=== PATIENT | male | born 1940 | race Caucasian/White ===

== ENCOUNTER → 2016-04-05 | Outpatient (CLI) | payer MEDICARE, MEDICAID ==
[~2016-04-05] MED LIST: AMLO10TA2 PO; BRIM5DRO OP; LATA2.5D5 OP; LISI40TA PO; METF1000 PO; METO-351 PO
--- OUTSIDE RECORDS SUMMARY | 2016-04-05 11:41 | XMS REPORT ---
Author Author Tomasa Albert Organization [facility] Address [address] [place], [place] [id number] Care Team Providers Care Commercial Lines Insurance Agent Name Role Phone Tomasa Albert PCP Unavailable [place] Unavailable Unavailable [place] Unavailable Unavailable [place] Unavailable Unavailable Allergies and Adverse Reactions Name Reaction Notes NO KNOWN DRUG ALLERGIES Plan of Treatment Planned Activity Comments Planned Date Planned Time Plan/Goal ELECTROCARDIOGRAM TRACING 09/01/2015 12:00 AM COMPLETE CBC W/AUTO DIFF WBC 10/19/2015 12:00 AM COMPREHEN METABOLIC PANEL 10/19/2015 12:00 AM LIPID PANEL 10/19/2015 12:00 AM GLYCOSYLATED HEMOGLOBIN TEST 10/19/2015 12:00 AM ASSAY THYROID STIM HORMONE 10/19/2015 12:00 AM Medications Active Name Start Date Estimated Completion Date SIG Comments amlodipine 10 mg oral tablet take 1 tablet (10 mg) by oral route once daily testosterone cypionate 200 mg/mL intramuscular oil inject 1 milliliter by intramuscular route every 4 weeks lisinopril 40 mg oral tablet take 1 tablet (40 mg) by oral route once daily Combigan 0.2-0.5 % ophthalmic drops latanoprost 0.005 % ophthalmic drops OneTouch Verio Flex miscellaneous misc 07/29/2015 01/25/2016 Test strips and lancets for once daily testing, Dx: DM II metformin 500 mg oral tablet extended release 24 hr 09/01/2015 02/28/2016 take 2 tablets (1,000 mg) by oral route 2 times per day for 30 days Stiolto Respimat 2.5-2.5 mcg/actuation inhalation mist 09/26/2015 12/25/2015 inhale 2 puffs by inhalation route once daily at the same time each day for 30 days B12 5,000-100 mcg sublingual lozenge Cialis 5 mg oral tablet 10/19/2015 01/17/2016 take 1 tablet (5 mg) by oral route once daily for 30 days cyclobenzaprine 10 mg oral tablet 10/19/2015 take 0.5-1 tablet by oral route once a day (at bedtime) as needed diclofenac sodium 75 mg oral tablet,delayed release (DR/EC) 10/19/20152015 take 1 tablet (75 mg) by oral route 2 times per day for 30 days Discontinued Name Start Date Discontinued Date SIG Comments famotidine 20 mg oral tablet 10/19/2015 take 1 tablet (20 mg) by oral route 2 times per day Invokana 300 mg oral tablet 09/01/2015 10/19/2015 take 1 tablet (300 mg) by oral route once daily before the first meal of the day for 30 days Invokana 300 mg oral tablet 09/01/2015 10/19/2015 take 1 tablet (300 mg) by oral route once daily before the first meal of the day for 30 days Per Pt due to law firms rosuvastatin 20 mg oral tablet 09/01/2015 10/19/2015 take 1 tablet (20 mg) by oral route once daily at bedtime for 30 days Problem List Not available. Vital Signs Date Time BP-Sys(mm[Hg] BP-[place](mm[Hg]) HR(bpm) RR(rpm) Temp WT HT HC BMI BSA BMI Percentile O2 Sat(%) 10/19/2015 11:31:00 AM 142 mmHg 78 mmHg 74 bpm 17 rpm 97.4 F 204.6 lbs 68 in 31.11 kg/m2 2.11 m2 96 % 09/01/2015 2:08:00 PM 120 mmHg 72 mmHg 96 bpm 16 rpm 98.1 F 206 lbs 67 in 32.2638 kg/m 2.1017 m 96 % 07/29/2015 1:37:00 PM 122 mmHg 78 mmHg 92 bpm 20 rpm 97.4 F 207 lbs 68 in 31.47 kg/m2 2.12 m2 95 % 06/29/2015 11:18:00 AM 215 lbs 68 in 32.6903 kg/m 2.1631 m Social History Name Description Comments Tobacco Never smoker Alcohol Current some day History of Procedures Date Ordered Description Order Status 06/24/2015 12:00 AM ASSAY OF PSA TOTAL Reviewed 06/29/2015 12:00 AM ASSAY GLUCOSE BLOOD QUANT Reviewed 08/12/2015 12:00 AM BREATHING CAPACITY TEST Returned 10/19/2015 12:49 PM URINALYSIS AUTO W/O SCOPE Reviewed Results Summary Data and Description Results 06/24/2015 1:15 PM PSA TOTAL 2.070 ng/mL 06/29/2015 12:25 PM GLUCOSE 270.0 mg/dL 10/19/2015 12:49 PM Clarity Ur clear Color Ur lt yellow Glucose Ur-sCnc neg Bilirub Ur Ql Strip neg Ketones Ur Ql Strip neg Sp Gr Ur Qn >=1.030 Hgb Ur Ql Strip neg pH Ur-LsCnc 5.0 Prot Ur Ql Strip neg Urobilinogen Ur-mCnc 0.2 E.U/dL Nitrite Ur Ql Strip neg WBC Est Ur Ql Strip neg History Of Immunizations Not available. History of Past Illness Name Date of Onset Comments Renal stones Hypertension Erectile dysfunction BPH (benign prostatic hyperplasia) Glycosuria Nocturia Basal cell carcinoma Malignant melanoma of skin Bronchitis Diabetes Urinary frequency Jun 24 2015 10:39AM Screening for prostate cancer Jun 24 2015 10:39AM Glycosuria Jun 29 2015 11:51AM Diabetes mellitus without complication Jul 29 2015 1:42PM Essential hypertension Jul 29 2015 1:42PM Simple chronic bronchitis Jul 29 2015 1:42PM Vasculogenic erectile dysfunction, unspecified vasculogenic erectile dysfunction type Jul 29 2015 1:42PM Simple chronic bronchitis Aug 12 2015 3:37PM Diabetes mellitus without complication Sep 01 2015 2:10PM Other chest pain Sep 01 2015 2:10PM Essential hypertension with goal blood pressure less than 140/90 Sep 01 2015 2:10PM Pure hypercholesterolemia Sep 01 2015 2:10PM Benign prostatic hyperplasia with lower urinary tract symptoms, unspecified morphology Oct 19 2015 11:35AM Flank pain Oct 19 2015 11:35AM Diabetes Mellitus, Type II Oct 19 2015 11:35AM Hypertension Oct 19 2015 11:35AM Fatigue, unspecified type Oct 19 2015 11:35AM Muscle strain Oct 19 2015 11:35AM Payers Insurance Name Company Name Plan Name Plan Number Policy Number Policy Group Number Start Date Medicare Part A Medicare RHC [id number] N/A [place] [employer] - RHC [place] [employer] - RHC [id number] N/A Medicare Part A Medicare - Lab/Xray [id number] N/A Medicare Part B Medicare Of [place] [id number] N/A [place] [employer] [facility] [place] [employer] [id number] N/A History of Encounters Visit Date Visit Type Provider 10/19/2015 Office visit Tomasa Albert APRN 09/01/[address] Jose Escalante MD 08/08/2015 [facility] Berkley Bonds MD 07/29/[address] Jose Escalante MD 06/29/2015 Office visit Berkley Bonds MD
== END ==
LOC: EDSTATUS 07-07 09:06 → PAR 11:37
PROVIDERS: ATTEND Internal Medicine Hematology & Oncology
DX: Z08 Encounter for follow-up examination after completed treatment for malignant neoplasm (principal); Z85.820 Personal history of malignant melanoma of skin; R35.1 Nocturia; I10 Essential (primary) hypertension; Z79.899 Other long term (current) drug therapy
CPT/HCPCS: 99213

== ENCOUNTER 2016-07-09 15:02 | Outpatient (CLI) | payer MEDICARE, MEDICAID ==
[~2016-07-09] VITALS: Ht 172.7 cm; Wt 91.9 kg
[2016-07-09] MEDS ORDERED: LATA2.5D5 OP (15:19)
[2016-07-09] MEDS ORDERED: LISI40TA PO (15:19)
[2016-07-09] MEDS ORDERED: BRIM5DRO OP (15:19)
[2016-07-09] MEDS ORDERED: AMLO10TA2 PO (15:19)
[2016-07-09] MEDS ORDERED: METF1000 PO (15:19)
[2016-07-09 15:28] VITALS: BP 99/65
[2016-07-09] MEDS ORDERED: METO-351 PO (17:22)
== END 2016-07-09 16:30 ==
LOC: PREOP 15:02
PROVIDERS: ATTEND Otolaryngology Otolaryngology/Facial Plastic Surgery
DX: Z01.810 Encounter for preprocedural cardiovascular examination (principal); Z01.812 Encounter for preprocedural laboratory examination; Z11.2 Encounter for screening for other bacterial diseases; C43.21 Malignant melanoma of right ear and external auricular canal
CPT/HCPCS: 87081; 93005

== ENCOUNTER 2016-07-09 16:12 | Emergency (ER) | payer MEDICARE, MEDICAID ==
[~2016-07-09] VITALS: Ht 172.7 cm; Wt 92.1 kg
[~2016-07-09 16:12] MED LIST changes: -METO-351 PO
--- NOTE | 2016-07-09 16:29 | ED Cardiac General ---
History of Present Illness General Chief Complaint: Cardiac/General Problems Stated Complaint: IRREGULAR HEAR RATE Source: patient, RN notes reviewed Exam Limitations: no limitations History of Present Illness Time seen by provider: 16:28 Allergies and Home Medications Allergies Coded Allergies: No Known Drug Allergies (Unverified , 07/09/16) Home Medications Amlodipine Besylate 10 Mg Tablet, 10 MG PO DAILY, (Reported) Brimonidine Tartrate/Timolol 5 Ml Drops, OP BID, (Reported) Latanoprost 2.5 Ml Drops, 2.5 ML OP HS, (Reported) Lisinopril 40 Mg Tablet, 40 MG PO DAILY, (Reported) Metformin HCl 1,000 Mg Tablet, 1,000 MG PO BID, (Reported) Past Xspppyc-Qehiyc-Jflhfx Hx Patient Social History Recent Hopitalizations: No Immunizations Up To Date Date of Influenza Vaccine: Dec 12, 2015 Seasonal Allergies Seasonal Allergies: No Surgeries HX Surgeries: Yes (MELANOMA ON BACK, WRIST SHATTERED, BASAL CELL SKIN LESIONS X6, ESWL) Respiratory Hx Respiratory Disorders: Yes Respiratory Disorders: Chronic Bronchitis Cardiovascular Hx Cardiac Disorders: Yes Cardiac Disorders: Hypertension Neurological Hx Neurological Disorders: Yes Neurological Disorders: Headaches /Migraines Reproductive System Hx Reproductive Disorders: No Sexually Transmitted Disease: No HIV/AIDS: No Genitourinary Hx Genitourinary Disorders: Yes (FREQUENCY) Genitourinary Disorders: Kidney Stones Gastrointestinal Hx Gastrointestinal Disorders: No Musculoskeletal Hx Musculoskeletal Disorders: Yes (MILD) Musculoskeletal Disorders: Amputee Endocrine Hx Endocrine Disorders: Yes HEENT HX ENT Disorders: No HEENT Disorders: Tinnitis Loss of Vision: Denies Hearing Impairment: Denies Cancer Hx Cancer: Yes Cancer: Skin, Melanoma Psychosocial Hx Psychiatric Problems: No Integumentary HX Skin/Integumentary Disorder: Yes (SKIN CANCER) Blood Transfusions Hx Blood Disorders: No Adverse Reaction to a Blood Tr: No (N/A) Physical Exam Vital Signs Vital Sign - Last 12Hours 07/09/16 16:12 Temp 98.4 Pulse 100 Resp 18 B/P (MAP) 113/64 O2 Delivery Room Air Capillary Refill : Progress/Results/Core Measures Results/Orders Lab Results Laboratory Tests Test 07/09/16 16:13 Range/Units White Blood Count 11.9 H 4.3-11.0 10^3/uL Red Blood Count 5.14 4.35-5.85 10^6/uL Hemoglobin 14.8 13.3-17.7 G/DL Hematocrit 45 40-54 % Mean Corpuscular Volume 87 80-99 FL Mean Corpuscular Hemoglobin 29 25-34 PG Mean Corpuscular Hemoglobin Concent 33 32-36 G/DL Red Cell Distribution Width 14.5 10.0-14.5 % Platelet Count 242 130-400 10^3/uL Mean Platelet Volume 9.5 7.4-10.4 FL Neutrophils (%) (Auto) 64 42-75 % Lymphocytes (%) (Auto) 25 12-44 % Monocytes (%) (Auto) 9 0-12 % Eosinophils (%) (Auto) 2 0-10 % Basophils (%) (Auto) 0 0-10 % Neutrophils # (Auto) 7.6 1.8-7.8 X 10^3 Lymphocytes # (Auto) 3.0 1.0-4.0 X 10^3 Monocytes # (Auto) 1.1 H 0.0-1.0 X 10^3 Eosinophils # (Auto) 0.3 0.0-0.3 10^3/uL Basophils # (Auto) 0.0 0.0-0.1 10^3/uL Sodium Level 143 135-145 MMOL/L Potassium Level 4.2 3.6-5.0 MMOL/L Chloride Level 110 H 98-107 MMOL/L Carbon Dioxide Level 23 21-32 MMOL/L Anion Gap 10 5-14 MMOL/L Blood Urea Nitrogen 21 H 7-18 MG/DL Creatinine 1.27 0.60-1.30 MG/DL Estimat Glomerular Filtration Rate 55 BUN/Creatinine Ratio 17 Glucose Level 110 H 70-105 MG/DL Calcium Level 9.6 8.5-10.1 MG/DL Magnesium Level 1.9 1.8-2.4 MG/DL Total Bilirubin 0.6 0.1-1.0 MG/DL Aspartate Amino Transf (AST/SGOT) 16 5-34 U/L Alanine Aminotransferase (ALT/SGPT) 19 0-55 U/L Alkaline Phosphatase 64 40-136 U/L Troponin I < 0.30 <0.30 NG/ML Total Protein 7.0 6.4-8.2 G/DL Albumin 4.3 3.2-4.5 G/DL Thyroid Stimulating Hormone (TSH) 2.25 0.35-4.94 UIU/ML My Orders Orders - MONSERRAT,ANCA D DO Cbc With Automated Diff (07/09/16 16:28) Comprehensive Metabolic Panel (07/09/16 16:28) Magnesium (07/09/16 16:28) Thyroid Stimulating Hormone (07/09/16 16:28) Troponin I (07/09/16 16:28) Chest 1 View, Ap/Pa Only (07/09/16 16:28) Ekg Tracing (07/09/16 16:46) Vital Signs/I&O Vital Sign - Last 12Hours 07/09/16 16:12 Temp 98.4 Pulse 100 Resp 18 B/P (MAP) 113/64 O2 Delivery Room Air Departure Impression Impression: Primary Impression: PAF (paroxysmal atrial fibrillation) Disposition: 01 HOME, SELF-CARE Condition: Improved Departure-Patient Inst. Decision time for Depature: 17:19 Referrals: ARGELIA COVARRUBIAS DO (PCP) Primary Care Physician TIANNA PATEL MD, BASHAR J MD Patient Instructions: Atrial Fibrillation (DC) Add. Discharge Instructions: All discharge instructions reviewed with patient and/or family. Voiced understanding. STOP YOUR AMLODIPINE AND BEGIN NEW MEDICATION TOMORROW, 07/10. DR. ROCHA ([facility] [employer] [facility]) WANTS TO SEE YOU IN HIS OFFICE IN THE MORNING, 07/10. CALL FIRST THING IN THE AM TO SEE WHAT TIME. Scripts Metoprolol Succinate (Toprol Xl) 25 Mg Tab.er.24h 25 MG PO DAILY, #30 TAB Prov: ANCA GERMAN DO 07/09/16 ANCA GERMAN DO July 09, 2016 16:29
[2016-07-09 16:35] LABS: BASOPHILS % (AUTO) 0 % (0-10); EOSINOPHILS # (AUTO) 0.3 10^3/uL (0.0-0.3); EOSINOPHILS % (AUTO) 2 % (0-10); LYMPHOCYTES % (AUTO) 25 % (12-44); MEAN CORPUSCULAR HEMOGLOBIN 29 PG (25-34); MEAN CORPUSCULAR HGB CONC 33 G/DL (32-36); MEAN CORPUSCULAR VOLUME 87 FL (80-99); MEAN PLATELET VOLUME 9.5 FL (7.4-10.4); MONOCYTES # (AUTO) 1.1 X 10^3 (0.0-1.0); MONOCYTES % (AUTO) 9 % (0-12); NEUTROPHILS # (AUTO) 7.6 X 10^3 (1.8-7.8); NEUTROPHILS % (AUTO) 64 % (42-75); PLATELET COUNT 242 10^3/uL (130-400); RED BLOOD COUNT 5.14 10^6/uL (4.35-5.85); RED CELL DISTRIBUTION WIDTH 14.5 % (10.0-14.5); WHITE BLOOD COUNT 11.9 10^3/uL (4.3-11.0)
[2016-07-09 16:47] LABS: ALANINE AMINOTRANSFERASE 19 U/L (0-55); ALBUMIN 4.3 G/DL (3.2-4.5); ANION GAP 10 MMOL/L (5-14); ASPARTATE AMINO TRANSFERASE 16 U/L (5-34); BILIRUBIN,TOTAL 0.6 MG/DL (0.1-1.0); BLOOD UREA NITROGEN 21 MG/DL (7-18); BUN/CREATININE RATIO 17; CALCIUM 9.6 MG/DL (8.5-10.1); CARBON DIOXIDE 23 MMOL/L (21-32); CHLORIDE 110 MMOL/L (98-107); CREATININE SERUM 1.27 MG/DL (0.60-1.30); GFR ESTIMATED 55; GLUCOSE 110 MG/DL (70-105); MAGNESIUM 1.9 MG/DL (1.8-2.4); POTASSIUM 4.2 MMOL/L (3.6-5.0); SODIUM 143 MMOL/L (135-145)
[2016-07-09 17:07] LABS: THYROID STIMULATING HORMONE 2.25 UIU/ML (0.35-4.94); TROPONIN I < 0.30 NG/ML (<0.30)
--- NOTE | 2016-07-09 17:12 | Diagnostic Imaging Report ---
Indication: Arrhythmia Portable chest 5:04 PM Heart size and pulmonary vascularity are normal. Lungs are clear. There are no effusions or pneumothoraces. Impression: Negative chest Dictated by: Dictated on workstation # [id number]
[2016-07-09] MEDS ORDERED: METO-351 PO (17:22)
[2016-07-09 17:40] VITALS: BP 122/78
== END 2016-07-09 17:41 | disposition home or self-care (01) ==
LOC: EDUNIT# 16:12 → ER 16:13
DX: I48.0 Paroxysmal atrial fibrillation (principal); I10 Essential (primary) hypertension; Z79.899 Other long term (current) drug therapy; Z85.820 Personal history of malignant melanoma of skin
CPT/HCPCS: 36415; 71010; 80053; 83735; 84443; 84484; 85025; 93005

== ENCOUNTER 2016-08-02 08:02 | Day surgery (SDC) | payer MEDICARE, MEDICAID ==
[~2016-08-02] VITALS: Ht 172.7 cm; Wt 92.3 kg
[~2016-08-02 08:02] MED LIST changes: +METO-351 PO
[2016-08-02] MEDS ORDERED: RT-ALBUTEROL SULF 2.5 MG/3 ML PRE-MIX VIAL INH ONE (09:00)
[2016-08-02 09:02] VITALS: BP 149/88
[2016-08-02] MEDS: LACTATED RINGERS 1,000 ML IV PRN ×2 (09:04→10:55)
[2016-08-02] MEDS ORDERED: proPOfol 200 MG/20 ML (DIPRIVAN) VIAL IV ONE (10:14)
[2016-08-02] MEDS ORDERED: LIDOCAINE/EPI 1%-1:100,000 (XYLOCAINE) 20ML ONE (10:14)
[2016-08-02] MEDS ORDERED: LACTATED RINGERS 1,000 ML IV ONE ×2 (10:14→11:21)
[2016-08-02] MEDS ORDERED: SEVOFLURANE (ULTANE) 15 ML INHAL SOLN ONE (10:14)
[2016-08-02] MEDS ORDERED: fentaNYL INJECTION 100 MCG/2 ML AMP ONE (10:14)
[2016-08-02] MEDS ORDERED: ONDANSETRON 4 MG/2 ML (SDV) Z0FRAN ONE (10:14)
[2016-08-02] MEDS ORDERED: LIDOCAINE PF 2% 5 ML (XYLOCAINE) VIAL ONE (10:14)
--- NOTE | 2016-08-02 10:31 | Progress Note-Pre Operative ---
Pre-Operative Progress Note H&P Reviewed The H&P was reviewed, patient examined and no changes noted. Date H&P Reviewed: Aug 02, 2016 Time H&P Reviewed: 10:00 Pre-Operative Diagnosis: Lentiga Maligna Melanoma of Right EAr [place] TIANNA PATEL MD Aug 02, 2016 10:31 am
--- NOTE | 2016-08-02 11:09 | Progress Note-Post Operative ---
Post-Operative Progess Note Surgeon (s)/Glycerin Supervisor (s) Surgeon TIANNA PATEL MD Glycerin Supervisor n/a Pre-Operative Diagnosis Lentiga Maligna Melanoma of Right EAr [place] Post-Operative Diagnosis same Post-Op Procedure Note Date of Procedure: Aug 02, 2016 Name of Procedure Performed: Re-Excsion of Lent[place] Maligna Melanoma of Right EAr Description & Findings Description and Findings: n/a Anesthesia Type lma Estimated Blood Loss minimal Packing none. Specimen(s) collected/removed right ear maligna melanoma of helix TIANNA PATEL MD Aug 02, 2016 11:09 am
[2016-08-02] MEDS ORDERED: HYDROcodone/APAP 5 MG/325 MG (LORTAB) TAB PO PRN (11:15)
[2016-08-02] MEDS ORDERED: ACETAMINOPHEN 325 MG TABLET/CAPLET (TYLENOL) PO PRN (11:15)
[2016-08-02] MEDS ORDERED: morphine INJ 10 MG/ML 1ML (SYR OR VIAL) IVP PRN (11:30)
[2016-08-02] MEDS ORDERED: ONDANSETRON 4 MG/2 ML (SDV) Z0FRAN IVP PRN (11:30)
[2016-08-02 12:10] VITALS: BP 106/66
[2016-08-02 12:40] VITALS: BP 111/72
[2016-08-02] MEDS ORDERED: MUPIROCIN 2% OINT 22 GM (BACTROBAN) TUBE ONE (13:04)
[2016-08-02 13:10] VITALS: BP 123/79
[2016-08-02] MEDS ORDERED: HYDR-3812 PO (13:14)
[2016-08-02] MEDS ORDERED: CEPH-507 PO (13:18)
[2016-08-02 13:43] VITALS: BP 123/79
== END 2016-08-02 13:43 | disposition home or self-care (01) ==
LOC: SDC 08:02
PROVIDERS: ATTEND Otolaryngology Otolaryngology/Facial Plastic Surgery
DX: D03.21 Melanoma in situ of right ear and external auricular canal (principal); I10 Essential (primary) hypertension; I48.91 Unspecified atrial fibrillation; J42 Unspecified chronic bronchitis; E11.9 Type 2 diabetes mellitus without complications; E66.9 Obesity, unspecified; Z68.30 Body mass index [BMI] 30.0-30.9, adult; Z79.899 Other long term (current) drug therapy
CPT/HCPCS: 82962; 88305; 94640; 94760

== ENCOUNTER → 2017-05-07 | Outpatient (CLI) | payer MEDICARE, MEDICAID ==
[~2017-05-07] MED LIST changes: +ACHD5005 PO; +CEPH-507 PO
== END ==
LOC: ONC 10:18
PROVIDERS: ATTEND Internal Medicine Hematology & Oncology
DX: D03.21 Melanoma in situ of right ear and external auricular canal (principal); I10 Essential (primary) hypertension; I48.91 Unspecified atrial fibrillation; J42 Unspecified chronic bronchitis; E11.9 Type 2 diabetes mellitus without complications; R35.1 Nocturia; E66.9 Obesity, unspecified; Z68.30 Body mass index [BMI] 30.0-30.9, adult; Z79.899 Other long term (current) drug therapy
CPT/HCPCS: 99213

== ENCOUNTER → 2017-12-19 | Outpatient (CLI) | payer MEDICARE, MEDICAID ==
[~2017-12-19] MED LIST changes: -AMLO10TA2 PO; +AMLO10TA6 PO; +GADOBUTROL 10 MMOL/10 ML (GADAVIST) VIAL IV ONE; +METF-399 PO; -METF1000 PO
[2017-12-19 15:03] LABS: BUN/CREATININE RATIO 19; CREATININE SERUM 1.03 MG/DL (0.60-1.30); GFR ESTIMATED > 60
--- NOTE | 2017-12-19 17:11 | Diagnostic Imaging Report ---
CLINICAL INDICATION: Patient states he has a crawling sensation on the left side of face about every 10 seconds. Patient went to a doctor who gave him a steroid injection in that area and now he has headaches, visual changes, and tinnitus. EXAM: MRI of the brain performed without and with 9 cc of Gadovist IV contrast. Sequences include axial DWI, ADC map, axial gradient echo, axial T2, axial FLAIR, axial T1, axial 3-D FIESTA thin, axial T1 post IV contrast, coronal T1 fat-sat post IV contrast, and sagittal T1 post IV contrast. COMPARISON: None. FINDINGS: There is no evidence of acute cerebral infarct, intracranial hemorrhage, or gross mass effect. There is no abnormal IV contrast enhancement. There is diffuse mild brain parenchymal volume loss. There are multiple focal and patchy areas of high T2 signal white matter changes seen throughout both cerebral hemispheres, suspected to represent chronic small vessel ischemic disease. There is normal velez-white matter distinction. There is no significant midline shift or herniation. 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 Otherwise, the [place] vascular structures show no gross abnormality as visualized. There is no evidence of hydrocephalus. The basal cisterns are unremarkable. The visualized portions of the basal cisterns and cranial nerves show no significant abnormality. There is normal high T2 signal fluid within the bilateral inner ear structures. The skull, extracranial soft tissue, and orbits are unremarkable. There is minimal mucosal thickening involving both maxillary sinuses and ethmoid sinus. There is moderate amount of mucosal thickening in the sphenoid sinus. Temporal bones show no significant abnormality. IMPRESSION: 1: There is no evidence of acute intracranial process. There is no significant abnormality involving the temporal bone structures or basal cisterns. There is no abnormal IV contrast enhancement. 2: Chronic small vessel ischemic disease and diffuse brain parenchymal volume loss. 3: Mild to moderate paranasal sinus disease. Dictated by: Dictated on workstation # [id number]
--- NOTE | 2017-12-19 17:19 | Diagnostic Imaging Report ---
CLINICAL INDICATION: Patient states he has had a crawling sensation on left side of ear area of face about every 10 seconds. Patient went to a doctor that gave him a steroid injection in that area, and now he has headaches, visual changes, and tinnitus. EXAM: MRA of the [place] performed without IV contrast performed with 3D [id number]. Rotating 3D MIP images of the [place] were performed. COMPARISON: MRI of the brain performed without and with IV contrast dated 12/19/2017. FINDINGS: There is flow artifact within the [place] vascular structures. There is also flow artifact within the dural venous sinuses. There is also phase artifact involving multiple segments of the vessels, which causes dropout of signal. This is seen involving the posterior fossa, which affects both anterior and posterior circulation. Besides the areas of artifact, the [place] vascular structures are patent. 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 Left PICA is seen. The right PICA is not well delineated on this exam, and may be due to artifact from drop of signal. There is no evidence of aneurysm or vascular malformation. IMPRESSION: 1: Limited exam due to flow artifact and phase artifact which limits evaluation of the intracranial vascular structures. 2: There is loss of signal in the expected region of the right PICA, which may be artifactual. There is no evidence of infarct on the comparison MRI. This would be better evaluated with CT angiogram of the [place]. 3: Otherwise, there is no definite evidence of major vascular occlusion, aneurysm, or vascular malformation involving the [place]. 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 Dictated by: Dictated on workstation # [id number]
== END ==
LOC: RAD 14:01
PROVIDERS: ATTEND Otolaryngology Otolaryngology/Facial Plastic Surgery
DX: J32.8 Other chronic sinusitis (principal); I67.82 Cerebral ischemia; H53.9 Unspecified visual disturbance; H93.19 Tinnitus, unspecified ear
CPT/HCPCS: 36415; 70544; 70553; 82565; 84520

== ENCOUNTER → 2017-12-25 | Outpatient (CLI) | payer MEDICARE, MEDICAID ==
[~2017-12-25] MED LIST changes: -GADOBUTROL 10 MMOL/10 ML (GADAVIST) VIAL IV ONE; +IOHEXOL 350 MG/ML 100 ML (OMNIPAQUE 350) VIAL IV ONE; +NS 250 ML (IVPB) BAG IV ONE
--- NOTE | 2017-12-25 16:23 | Diagnostic Imaging Report ---
PROCEDURE: CT angiography of the head with and without contrast. TECHNIQUE: Noncontrast CT of the head was obtained. Subsequently, after intravenous administration of contrast, thin section axial CT angiography of the head was performed. Source data was reformatted into multiple 2D MIP reformats. Delayed postcontrast acquisition of the head was also acquired. INDICATION: Head pain, dizziness. FINDINGS: CT head: The pre and delayed post contrast-enhanced head CT reveals a mild degree of cerebrocortical atrophy and minimal periventricular white matter small vessel disease when correlated with previous MRI, unchanged. No focal or generalized edema. There is no hemorrhage and with IV contrast administration, there was no abnormal parenchymal or meningeal enhancement. Enhancement of the major dural venous sinus is present. There is no mastoid effusion. Orbits, paranasal sinuses, and calvarium had an unremarkable appearance. CT angio head: Widely patent intrathecal vertebral arteries are present. There is some diffuse enlargement of the basilar, consistent with incidental dolichoectasia. No jessica aneurysm. There is some generalized ectasia of the intracranial ICAs as well. No intracerebral aneurysm is identified. No large vessel occlusion or intraluminal thrombus. There is no vascular malformation. No significant plaque or luminal arterial irregularity. 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 No aneurysm. No acute-appearing abnormality. Dictated by: Dictated on workstation # [id number]
== END ==
LOC: RAD 11:01
PROVIDERS: ATTEND Otolaryngology Otolaryngology/Facial Plastic Surgery
DX: I77.89 Other specified disorders of arteries and arterioles (principal); H93.19 Tinnitus, unspecified ear; H53.9 Unspecified visual disturbance; R51 Headache
CPT/HCPCS: 70496

== ENCOUNTER → 2018-05-06 | Outpatient (CLI) | payer MEDICARE, MEDICAID ==
[~2018-05-06] MED LIST changes: -AMLO10TA6 PO; +AMLO10TA7 PO; -IOHEXOL 350 MG/ML 100 ML (OMNIPAQUE 350) VIAL IV ONE; -NS 250 ML (IVPB) BAG IV ONE
[2018-05-06 10:12] LABS: BASOPHILS % (AUTO) 0 % (0-10); EOSINOPHILS # (AUTO) 0.7 10^3/uL (0.0-0.3); EOSINOPHILS % (AUTO) 6 % (0-10); HEMATOCRIT 40 % (40-54); LYMPHOCYTES # (AUTO) 2.4 X 10^3 (1.0-4.0); LYMPHOCYTES % (AUTO) 21 % (12-44); MEAN CORPUSCULAR HEMOGLOBIN 28 PG (25-34); MEAN CORPUSCULAR HGB CONC 33 G/DL (32-36); MEAN CORPUSCULAR VOLUME 86 FL (80-99); MEAN PLATELET VOLUME 9.1 FL (7.4-10.4); MONOCYTES % (AUTO) 9 % (0-12); NEUTROPHILS # (AUTO) 7.4 X 10^3 (1.8-7.8); NEUTROPHILS % (AUTO) 64 % (42-75); PLATELET COUNT 291 10^3/uL (130-400); RED CELL DISTRIBUTION WIDTH 15.4 % (10.0-14.5); WHITE BLOOD COUNT 11.5 10^3/uL (4.3-11.0)
[2018-05-06 10:37] LABS: ALANINE AMINOTRANSFERASE 13 U/L (0-55); ALBUMIN 4.1 GM/DL (3.2-4.5); ALKALINE PHOSPHATASE 76 U/L (40-136); BILIRUBIN,TOTAL 0.8 MG/DL (0.1-1.0); BUN/CREATININE RATIO 17; CALCIUM 9.6 MG/DL (8.5-10.1); CARBON DIOXIDE 24 MMOL/L (21-32); CHLORIDE 105 MMOL/L (98-107); GFR ESTIMATED > 60; GLUCOSE 128 MG/DL (70-105); POTASSIUM 4.5 MMOL/L (3.6-5.0); SODIUM 138 MMOL/L (135-145); TOTAL PROTEIN 6.6 GM/DL (6.4-8.2)
== END ==
LOC: ONC 09:43
PROVIDERS: ATTEND Internal Medicine Hematology & Oncology
DX: Z08 Encounter for follow-up examination after completed treatment for malignant neoplasm (principal); Z85.820 Personal history of malignant melanoma of skin; I10 Essential (primary) hypertension; I48.91 Unspecified atrial fibrillation; J42 Unspecified chronic bronchitis; E11.9 Type 2 diabetes mellitus without complications; R35.1 Nocturia; E66.9 Obesity, unspecified; Z68.31 Body mass index [BMI] 31.0-31.9, adult; Z79.899 Other long term (current) drug therapy
CPT/HCPCS: 99213

== ENCOUNTER → 2019-05-05 | Outpatient (CLI) | payer MEDICARE, MEDICAID ==
[2019-05-05 09:49] LABS: BASOPHILS % (AUTO) 0 % (0-10); EOSINOPHILS # (AUTO) 0.3 10^3/uL (0.0-0.3); EOSINOPHILS % (AUTO) 6 % (0-10); HEMATOCRIT 43 % (40-54); HEMOGLOBIN 14.2 G/DL (13.3-17.7); LYMPHOCYTES # (AUTO) 1.7 X 10^3 (1.0-4.0); LYMPHOCYTES % (AUTO) 29 % (12-44); MEAN CORPUSCULAR HEMOGLOBIN 29 PG (25-34); MEAN CORPUSCULAR HGB CONC 33 G/DL (32-36); MEAN CORPUSCULAR VOLUME 87 FL (80-99); MONOCYTES # (AUTO) 0.7 X 10^3 (0.0-1.0); MONOCYTES % (AUTO) 13 % (0-12); NEUTROPHILS % (AUTO) 52 % (42-75); PLATELET COUNT 230 10^3/uL (130-400); RED CELL DISTRIBUTION WIDTH 15.3 % (10.0-14.5); WHITE BLOOD COUNT 5.7 10^3/uL (4.3-11.0)
[2019-05-05 10:07] LABS: ALANINE AMINOTRANSFERASE 21 U/L (0-55); ALBUMIN 4.3 GM/DL (3.2-4.5); ALKALINE PHOSPHATASE 85 U/L (40-136); BILIRUBIN,TOTAL 0.4 MG/DL (0.1-1.0); BUN/CREATININE RATIO 16; CALCIUM 9.3 MG/DL (8.5-10.1); CARBON DIOXIDE 19 MMOL/L (21-32); CHLORIDE 106 MMOL/L (98-107); CREATININE SERUM 1.09 MG/DL (0.60-1.30); GFR ESTIMATED > 60; GLUCOSE 151 MG/DL (70-105); POTASSIUM 4.4 MMOL/L (3.6-5.0); SODIUM 136 MMOL/L (135-145); TOTAL PROTEIN 7.2 GM/DL (6.4-8.2)
== END ==
LOC: ONC 09:23
PROVIDERS: ATTEND Internal Medicine Hematology & Oncology
DX: C43.9 Malignant melanoma of skin, unspecified (principal)
CPT/HCPCS: 80053; 85025; 99213